=== PATIENT | female | born 1960 | race Caucasian/White ===

== ENCOUNTER → 2021-02-11 13:42 | Outpatient (CLI) | payer MEDICAID, SELFPAY ==
[2021-02-11 14:02] LABS: Alanine Aminotransferase 21 U/L (12-78); Albumin Level 4.6 g/dl (3.5-5.0); Albumin/Globulin Ratio 1.6 (1.1-1.8); Alkaline Phosphatase 112 U/L (38-126); Anion Gap 12.4 mEq/L (5-15); Aspartate Amino Transferase 25 U/L (14-36); Bilirubin,Total 0.5 mg/dl (0.2-1.3); Blood Urea Nitrogen 15 mg/dl (7-17); Calcium 9.9 mg/dl (8.4-10.2); Carbon Dioxide 26 mmol/L (22.0-30.0); Chloride 106 mmol/L (98-107); Chol/HDL Ratio 4.9 (1-3.5); Cholesterol 201 mg/dl (140-200); Estimated Glomerular Filt Rate 85 ml/min (>60); GFR (African American) 103 ML/MIN (>60); Globulin 2.8 g/dL (1.3-3.2); Glucose 102 mg/dl (74-100); HDL Cholesterol 41 mg/dl (40-60); Potassium 4.4 mmoL/L (3.5-5.1); Sodium 140 mmol/L (136-145); Total Protein,Serum 7.4 g/dl (6.3-8.2); Triglycerides 157 mg/dl (30-150); VLDL Cholesterol 31 mg/dL (0-40)
[2021-02-11 14:14] LABS: Direct LDL Cholesterol 130.11 mg/dL (100-129)
[2021-02-11 14:19] LABS: 25-OH Vitamin D, Total 54.3 ng/mL (30-100)
[2021-02-11 14:20] LABS: T4 (Thyroxine) 9.6 ug/dl (5.53-11.0)
[2021-02-11 14:27] LABS: Basophils # 0.1 K/mm3 (0-0.2); Basophils % 0.7 % (0.1-2.0); Eosinophils # 0.1 K/mm3 (0.0-0.4); Eosinophils % 1.6 % (0.1-12.0); Hematocrit 42.3 % (37.0-47.0); Hemoglobin 14.3 g/dL (12.2-16.2); Lymphocytes # 2.3 K/mm3 (0.7-4.5); Lymphocytes % 27.2 % (10-50); Mean Corpuscular HGB Conc 33.8 g/dL (31.8-35.4); Mean Corpuscular Hemoglobin 30.2 pg (27.0-31.2); Mean Corpuscular Volume 89.2 fl (81-99); Mean Platelet Volume 8.7 fl (7.4-10.4); Monocytes # 0.5 K/mm3 (0.1-1.0); Monocytes % 5.6 % (1.7-9.3); Neutrophils # 5.5 K/mm3 (1.8-7.8); Platelet Count 319 K/mm3 (142-424); Red Blood Count 4.74 M/mm3 (4.20-5.40); White Blood Count 8.5 K/mm3 (4.8-10.8)
[2021-02-11 14:33] LABS: Thyroid Stimulating Hormone 2.46 uIU/mL (0.465-4.68)
[2021-02-11 15:35] LABS: Vitamin B12 > 1000 pg/mL (239-931)
== END ==
PROVIDERS: Visit Provider Family Medicine
DX: I10 Essential (primary) hypertension (principal); Z79.899 Other long term (current) drug therapy; Z68.25 Body mass index [BMI] 25.0-25.9, adult
CPT/HCPCS: 80053; 80061; 82306; 82607; 84436; 84443; 85025

== ENCOUNTER → 2022-03-23 13:59 | Outpatient (CLI) | payer MEDICAID, SELFPAY ==
[2022-03-23 13:34] LABS: Basophils # 0.1 K/mm3 (0-0.2); Basophils % 1.2 % (0.1-2.0); Eosinophils # 0.1 K/mm3 (0.0-0.4); Eosinophils % 1.6 % (0.1-12.0); Hematocrit 44.2 % (37.0-47.0); Hemoglobin 14.9 g/dL (12.2-16.2); Lymphocytes # 2.7 K/mm3 (0.7-4.5); Lymphocytes % 32.6 % (10-50); Mean Corpuscular HGB Conc 33.7 g/dL (31.8-35.4); Mean Corpuscular Hemoglobin 30.4 pg (27.0-31.2); Mean Platelet Volume 8.8 fl (7.4-10.4); Monocytes # 0.4 K/mm3 (0.1-1.0); Monocytes % 5.2 % (1.7-9.3); Neutrophils % 59.4 % (37.0-80.0); Platelet Count 387 K/mm3 (142-424); Red Blood Count 4.91 M/mm3 (4.20-5.40); Red Cell Distribution Width 12.9 % (11.5-17.5); White Blood Count 8.4 K/mm3 (4.8-10.8)
[2022-03-23 13:41] LABS: Chloride 106 mmol/L (98-107)
[2022-03-23 13:42] LABS: Potassium 3.9 mmoL/L (3.5-5.1); Sodium 139 mmol/L (136-145)
[2022-03-23 13:44] LABS: Alanine Aminotransferase 25 U/L (12-78); Albumin Level 4.6 g/dl (3.5-5.0); Albumin/Globulin Ratio 1.6 (1.1-1.8); Alkaline Phosphatase 130 U/L (38-126); Anion Gap 11.9 mEq/L (5-15); Aspartate Amino Transferase 29 U/L (14-36); Bilirubin,Total 0.6 mg/dl (0.2-1.3); Blood Urea Nitrogen 11 mg/dl (7-17); Carbon Dioxide 25 mmol/L (22.0-30.0); Estimated Glomerular Filt Rate 101 ml/min (>60); GFR (African American) 122 ML/MIN (>60); Globulin 2.8 g/dL (1.3-3.2); Total Protein,Serum 7.4 g/dl (6.3-8.2)
[2022-03-23 13:45] LABS: Calcium 9.8 mg/dl (8.4-10.2); Chol/HDL Ratio 5.6 (1-3.5); Cholesterol 197 mg/dl (140-200); Glucose 97 mg/dl (74-100); HDL Cholesterol 35 mg/dl (40-60); Triglycerides 190 mg/dl (30-150); VLDL Cholesterol 38 mg/dL (0-40)
[2022-03-23 13:57] LABS: Direct LDL Cholesterol 136.29 mg/dL (100-129)
[2022-03-23 14:11] LABS: Thyroid Stimulating Hormone 3.06 uIU/mL (0.465-4.68)
== END ==
PROVIDERS: PCP Family Medicine; Visit Provider Family Medicine
DX: E03.9 Hypothyroidism, unspecified (principal)
CPT/HCPCS: 80053; 80061; 84443; 85025

== ENCOUNTER 2022-12-09 08:58 | Emergency (ER) | payer MEDICAID, SELFPAY ==
[2022-12-09 09:05] VITALS: BP 123/74; PULSE 96; RESP 20; TEMP 36.8; O2SAT 95; BMI 27.4
--- NOTE | 2022-12-09 09:21 | XR_ITS ---
FINAL REPORT CLINICAL HISTORY: COUGH, SOA FINDINGS: Two views of the chest were obtained. The heart size and pulmonary vascularity are within normal limits. The mediastinum is normal. No acute pulmonary abnormality is identified. There is no pneumothorax. The bony thorax is intact. IMPRESSION: No active cardiopulmonary disease. Reviewed, Interpreted and Dictated by Zac Hawthorne III, MD Transcribed by Kacie Retana Authenticated and [facility]
--- NOTE | 2022-12-09 09:21 | EXP.UTC ---
Discharge Plan Disposition Patient Disposition: Home, Self-Care Condition: Good Prescriptions Prescriptions: New azithromycin [Zithromax Z-Alfredo] 250 mg tablet See Rx Instructions .ROUTE .COMPLEX 5 Days Qty: 6 0RF Rx Instructions: For 250 mg dose pack: take 500 mg today (day 1), then 250 mg for 4 days (days 2-5) benzonatate 100 mg capsule 100 mg PO TID PRN (Reason: cough) Qty: 30 0RF methylprednisolone [Medrol (Alfredo)] 4 mg tablets,dose pack See Rx Instructions .Route .COMPLEX 6 Days Qty: 21 0RF Rx Instructions: taper pack; guaifenesin [Mucinex] 600 mg tablet extended release 12hr 600 mg PO BID PRN (Reason: cough) Qty: 20 0RF No Action loratadine 10 mg capsule 10 mg PO DAILY Qty: 90 3RF ascorbate calcium (vitamin C) 500 mg tablet 500 mg PO DAILY cholecalciferol (vitamin D3) 125 mcg (5,000 unit) capsule 125 mcg PO DAILY aspirin [Adult Aspirin Regimen] 81 mg tablet,delayed release (DR/EC) 81 mg PO DAILY Afrin No Drip(oxymetazolin) 0.05 % mist 2 spray INTRANASAL Q12H PRN promethazine 25 mg tablet 25 mg PO Q4-6H PRN (Reason: nausea and vomiting) Qty: 45 5RF cetirizine-pseudoephedrine [Zyrtec-D] 5-120 mg tablet extended release 12 hr 1 tab PO BID Qty: 60 10RF chlordiazepoxide HCl 10 mg capsule 10 mg PO Q8H PRN (Reason: anxiety) Qty: 90 5RF losartan 50 mg tablet See Rx Instructions .ROUTE .COMPLEX Qty: 90 3RF Dose Instruction: TAKE 1 TABLET BY MOUTH DAILY. Rx Instructions: TAKE 1 TABLET BY MOUTH DAILY. albuterol sulfate [ProAir HFA] 90 mcg/actuation HFA aerosol inhaler See Rx Instructions .ROUTE .COMPLEX Qty: 8.5 12RF Dose Instruction: INHALE 2 PUFFS EVERY 4-6 HOURS NEEDED FOR SHORTNESS OF BREATH OR WHEEZING. Rx Instructions: INHALE 2 PUFFS EVERY 4-6 HOURS NEEDED FOR SHORTNESS OF BREATH OR WHEEZING. benzonatate 200 mg capsule 200 mg PO Q6H PRN (Reason: cough) Qty: 45 0RF [id number] [Bromfed DM] 2-30-10 mg/5 mL syrup 5 ml PO Q4-6H PRN (Reason: cold symptoms) Qty: 473 0RF dicyclomine 20 mg tablet See Rx Instructions .ROUTE .COMPLEX Qty: 90 0RF Dose Instruction: TAKE 1 TABLET BY MOUTH THREE TIMES DAILY. Rx Instructions: TAKE 1 TABLET BY MOUTH THREE TIMES DAILY. omeprazole 20 mg capsule,delayed release(DR/EC) See Rx Instructions .ROUTE .COMPLEX Qty: 90 0RF Dose Instruction: TAKE ONE (1) CAPSULE BY MOUTH TWO TIMES A DAY. Rx Instructions: TAKE ONE (1) CAPSULE BY MOUTH TWO TIMES A DAY. levothyroxine 25 mcg tablet See Rx Instructions .ROUTE .COMPLEX Qty: 90 0RF Dose Instruction: TAKE 1 TABLET BY MOUTH DAILY. Rx Instructions: TAKE 1 TABLET BY MOUTH DAILY. Referrals Follow up/Referrals: Jose Armando Cantu MD [Primary Care Provider] - See instructions Activity Restrictions/Add. Instructions Additional Instructions/Restrictions: Start antibiotic today. Be sure to complete entire prescription even if feeling better Monitor temp. Tylenol every 4 hours as needed and / or ibuprofen every 6 hours as needed ( As long as your primary care physician has told you that it ok to take both. For fever/aches/pains ER if no less than 101 despite Tylenol or Motrin Humidifier/vaporizer or hot steamy shower Inhaler every 4-6 hours as needed like we discussed. If unsure how to use it, ask pharmacist to demonstrate how. Should help open airways and improve cough, wheezing, and shortness of breath Mucinex during the day for your cough and cough suppressant only at night. Be sure to drink lots of water. *Tessalon Perles will not cause drowsiness but use at bedtime to help stop cough so that you may get some rest. *Start steroid tomorrow. Helps with inflammation therefore, cough and wheezing. Follow directions on the package. Reviewed side effects. Patient reports taking them before. Follow up IMMED
[2022-12-09 10:42] VITALS: BP 123/74; PULSE 96; RESP 20; TEMP 36.8; O2SAT 95
== END 2022-12-09 11:35 | disposition home or self-care (01) ==
PROVIDERS: Emergency Provider Nurse Practitioner; PCP Family Medicine
DX: J32.9 Chronic sinusitis, unspecified (principal); J40 Bronchitis, not specified as acute or chronic
CPT/HCPCS: 71046; 99212; 99214; G0463; J0696

== ENCOUNTER 2023-10-21 14:35 | Outpatient (CLI) | payer MEDICARE, MEDICAID, SELFPAY ==
--- NOTE | 2023-10-21 14:36 | CT_ITS ---
FINAL REPORT TECHNIQUE: Axial images were obtained from the lung apex to the mid abdomen by computed tomography. This study was performed with techniques to keep radiation doses as low as reasonably achievable (ALARA). Individualized dose reduction techniques using automated exposure control or adjustment of mA and/or kV according to the patient's size were employed. CLINICAL HISTORY: lung cancer screening smoker , 1 ppd x 45 years FINDINGS: CHEST CT LOW DOSE CTDI vol (mGy): 2.90 DLP (mGy-cm): 98.99 There is no axillary adenopathy. There are several mildly enlarged mediastinal nodes. The heart is normal in size. There is no pericardial or pleural effusion. There is bronchial wall thickening involving the right middle lobe and both lower lobes with areas of mucous plugging. There are multiple small nodules in the right middle lobe and both lower lobes. Multiple calcified granulomas are identified. Limited images of the upper abdomen are unremarkable. IMPRESSION: Bronchial wall thickening in the right middle lobe and both lower lobes with areas of mucous plugging and multiple small nodules, most likely inflammatory. Lung RADS category X. Recommend 2-3 month follow-up low-dose chest CT. Reviewed, Interpreted and Dictated by Zac Hawthorne III, MD Transcribed by Erin Trevino Authenticated and [facility]
== END 2023-10-21 23:59 ==
LOC: RAD 14:36
PROVIDERS: PCP Family Medicine; Visit Provider Family Medicine
DX: Z12.2 Encounter for screening for malignant neoplasm of respiratory organs (principal); Z87.891 Personal history of nicotine dependence
CPT/HCPCS: 71271